=== PATIENT | male | born 1980 | race Caucasian/White ===

== ENCOUNTER 2017-07-21 00:02 | Emergency (ER) | payer OTHER ==
[2017-07-21 00:29] VITALS: BP 126/80; PULSE 91; RESP 18; TEMP 97.9; O2SAT 99
--- NOTE | 2017-07-21 00:48 | C.PDOC ---
History Of Present Illness 37 year old male presents to the ER after he cut left pinky at work with large metal plate, edge was sharp. Denies weakness or numbness of the left pinky. Time Seen by Provider: 07/21/17 00:38 Chief Complaint (Nursing): Abnormal Skin Integrity History Per: Patient History/Exam Limitations: no limitations Onset/Duration Of Symptoms: Hrs Location Of Injury: Left: Hand (Left pinky) Quality Of Symptoms: Other (Laceration) Recent travel outside of the [place]: No Past Medical History Reviewed: Historical Data, Nursing Documentation, Vital Signs Vital Signs: Last Vital Signs Temp 97.9 F 07/21/17 00:25 Pulse 91 H 07/21/17 00:25 Resp 18 07/21/17 00:25 BP 126/80 07/21/17 00:25 Pulse Ox 99 07/21/17 03:14 Family History: States: Unknown Family Hx - Social History Hx Alcohol Use: Yes Hx Substance Use: No - Immunization History Hx Tetanus Toxoid Vaccination: No Hx Influenza Vaccination: No Hx Pneumococcal Vaccination: No Review Of Systems Musculoskeletal: Positive for: Hand Pain Skin: Positive for: Other (Laceration) Neurological: Negative for: Weakness, Numbness Physical Exam - Physical Exam Appears: Non-toxic Skin: Warm, Dry Head: Atraumatic, Normacephalic Eye(s): bilateral: Normal Inspection Extremity: Other (2cm curved linear laceration to fingertip of left 5th digit with mild active bleeding) Pulses: Left Dorsalis Pedis: Normal, Right Dorsalis Pedis: Normal Neurological/Psych: Oriented x3, Normal Speech, Normal Motor, Normal Sensation, Other (No focal deficits) ED Course And Treatment O2 Sat by Pulse Oximetry: 99 (Room air) Pulse Ox Interpretation: Normal Laceration - Laceration Repair fingertip of left 5th digit Wound Length (In cm): 2 Description Of Wound: Linear (Curved) Wound Cleansed With: Sterile Saline Anesthesia: Lidocaine 2% (4cc) Wound Examination: Irrigated With Saline, No FB With Wound Exploration, No Tendon Injury With Wound Exploration Wound Closure: Suture (x4) Suture Technique And Material Used: Interrupted, Nylon (4-0) Wound Complexity: Simple Medical Decision Making Medical Decision Making: Plan: * Bacitracin * Suture repair Patient tolerated suture repair with no difficulty, bacitracin and dressing applied. Patient instructed to follow up for suture removal in 9-10 days or return to the ER if any signs of redness, swelling, or discharge from wound arise. Disposition Counseled Patient/Family Regarding: Diagnosis, Need For Followup, Rx Given - Disposition Referrals: Non [facility] Provider, [Primary Care Provider] - Disposition: HOME/ ROUTINE Disposition Time: 01:07 Condition: STABLE Additional Instructions: Remove dressing in 24 hours. Keep area clean and dry. May wash gently with soap and water, do not use alcohol or iodine solution. Change dressing 1-2 times daily. Return to ER if fever occurs, redness or swelling around wound, pus in the wound. Please follow up with your primary doctor, clinic, or urgent care for suture removal in 9-10 days Prescriptions: Cephalexin [cephalexin] 500 mg PO BID #10 cap Instructions: Care For Your Stitches (ED) Forms: [employer] (Bel[place]ian), Work Excuse - POA Present On Arrival: None - Clinical Impression Clinical Impression: Finger laceration - PA / BEREAVEMENT PROGRAM COORDINATOR / Resident Statement MD/DO has reviewed & agrees with the documentation as recorded. - Scribe Statement The provider has reviewed the documentation as recorded by the Scribe Thomas Bass All medical record entries made by the Albinaibja were at my direction and personally dictated by me. I have reviewed the chart and agree that the record accurately reflects my personal performance of the history, physical exam, medical decision making, and the department course for this patient. I have also personally directed, reviewed, and agree with the discharge instructions and disposition.
[2017-07-21] MEDS ORDERED: Bacitracin 500 Units/gm Oint Foilpak UD TOP STA (01:02)
[2017-07-21] MEDS ORDERED: Bacitracin 500 Units/gm Oint Foilpak UD ONE (01:05)
== END 2017-07-21 01:10 | disposition home or self-care (01) ==
LOC: SUPCPDRO 00:02 → C.ER 00:02
DX: S61.217A Laceration without foreign body of left little finger without damage to nail, initial encounter (principal); W45.8XXA Other foreign body or object entering through skin, initial encounter; Y92.89 Other specified places as the place of occurrence of the external cause; Y99.0 Civilian activity done for income or pay